=== PATIENT | female | born 1990 | race Caucasian/White ===

== ENCOUNTER → 2024-01-28 | Outpatient (CLI) | payer SELFPAY ==
[2024-01-28 16:19] LABS: BILIRUBIN Negative (Negative); BLOOD 2+ (Negative); CLARITY Clear (Clear); COLOR Yellow (Yellow); GLUCOSE Negative (Negative); KETONE Negative (Negative); LEUKO ESTERASE 1+ (Negative); NITRITE Negative (Negative); SPECIFIC GRAVITY >= 1.030 (1.001-1.030)
[2024-01-28 16:29] LABS: BACTERIA 1+
[2024-01-28 16:30] LABS: MUCOUS 1+
== END | disposition home or self-care (01) ==
LOC: LAB 03:00
PROVIDERS: ATTEND Nurse Practitioner Family
DX: R30.0 Dysuria (principal)

== ENCOUNTER → 2024-02-04 | Outpatient (CLI) | payer SELFPAY ==
[2024-02-04 17:43] LABS: BILIRUBIN Negative (Negative); BLOOD 1+ (Negative); CLARITY Clear (Clear); COLOR Yellow (Yellow); GLUCOSE Negative (Negative); KETONE Negative (Negative); LEUKO ESTERASE Negative (Negative); NITRITE Negative (Negative); PH 5.5 (4.5-8.0); SPECIFIC GRAVITY 1.025 (1.001-1.030); UROBILINOGEN 0.2 E.U./dl (0.0-1.0)
[2024-02-04 17:51] LABS: BACTERIA 1+
== END | disposition home or self-care (01) ==
LOC: LAB 03:00
PROVIDERS: ATTEND Nurse Practitioner Family
DX: R30.0 Dysuria (principal)